=== PATIENT | female | born 1980 ===

== ENCOUNTER 2018-05-05 19:01 | Emergency (ER) | payer OTHER ==
[2018-05-05 19:01] VITALS: BMI 37.2
--- NOTE | 2018-05-05 20:17 | C.PDOC ---
History Of Present Illness 37 year old female presents to the ED complaining of lower back pain status post slipping and falling on her lower back while going down one step. States she felt some discomfort but started taking Motrin which helped ease the pain. Also complains of lower suprapubic pain that began 3 days ago. Reports Motrin only helps a little and the pain is constant and worse with movement. Denies any LOC, headache, dizziness, urinary symptoms, fever, chills, vaginal bleeding, bowel or bladder changes, changes in PO intake, or any other symptoms. Time Seen by Provider: 05/05/18 19:45 Chief Complaint (Nursing): Abdominal Pain History Per: Patient History/Exam Limitations: no limitations Onset/Duration Of Symptoms: Days Current Symptoms Are (Timing): Still Present Location Of Pain/Discomfort: Suprapubic Associated Symptoms: Back Pain. denies: Fever, Chills, Nausea, Vomiting, Diarrhea, Chest Pain, Urinary Symptoms Exacerbating Factors: Movement Alleviating Factors: OTC Meds Past Medical History Reviewed: Historical Data, Nursing Documentation, Vital Signs Vital Signs: Last Vital Signs Temp 98.8 F 05/05/18 19:34 Pulse 90 05/05/18 19:34 Resp 20 05/05/18 19:34 BP 129/85 05/05/18 19:34 Pulse Ox 99 05/05/18 19:34 Surgical History: No Surg Hx Family History: States: No Known Family Hx - Social History Hx Alcohol Use: No Hx Substance Use: No Review Of Systems Constitutional: Negative for: Fever, Chills Cardiovascular: Negative for: Chest Pain Respiratory: Negative for: Shortness of Breath Gastrointestinal: Positive for: Abdominal Pain. Negative for: Nausea, Vomiting, Diarrhea Genitourinary: Negative for: Dysuria, Hematuria, Vaginal Discharge, Vaginal Bleeding Musculoskeletal: Positive for: Back Pain. Negative for: Neck Pain Neurological: Negative for: Weakness, Numbness, Headache, Dizziness Physical Exam - Physical Exam Appears: Non-toxic, No Acute Distress Skin: Warm, Dry Head: Normacephalic Eye(s): bilateral: PERRL, EOMI Nose: Normal Oral Mucosa: Moist Neck: Normal ROM, Trachea Midline, Supple Chest: Symmetrical Cardiovascular: Rhythm Regular Respiratory: Normal Breath Sounds, No Rales, No Rhonchi, No Wheezing Gastrointestinal/Abdominal: Soft, Tenderness (Suprapubic midline tenderness) Back: No Decreased ROM, Other (Tenderness over mid sacrum, no bruising ) Extremity: Bilateral: No Pedal Edema, Normal Color And Temperature, Normal ROM Neurological/Psych: Oriented x3, Normal Speech, Normal Motor, Normal Sensation Gait: Steady ED Course And Treatment - Laboratory Results Result Diagrams: 05/05/18 20:36 05/05/18 20:36 Lab Interpretation: Normal O2 Sat by Pulse Oximetry: 99 (RA) Pulse Ox Interpretation: Normal - CT Scan/US CT abd/pelvis Other Rad Studies (CT/US): Read By Radiologist, Radiology Report Reviewed CT/US Interpretation: EXAM: CT Abdomen and Pelvis without IV contrast. CLI NICAL HISTORY: Abd pain after fall last week. TECHNIQUE: Axial computed tomography images of the abdomen and pelvis without intravenous contrast. 0.00 mGy-cm. CONTRAST: Without. COMPARISON: None provided. FINDINGS: LUNG BASES: The lung bases appear clear. No pleural effusions are seen. LIVER: Unremarkable. GALLBLADDER AND BILE DUCTS: 3 x 2 cm calcified gallstone is seen within a contracted gallbladder. PANCREAS: Unremarkable. SPLEEN: Unremarkable. ADRENAL GLANDS: Unremarkable. KIDNEYS, URETERS, AND BLADDER: The kidneys appear within normal limits. There is no hydronephrosis or hydroureter. No urinary calculi are seen. STOMACH AND BOWEL: Unremarkable appearance of the stomach and bowel. No evidence of bowel obstruction. No evidence suggesting enteritis or colitis. APPENDIX: No evidence of acute appendicitis on CT examination. PERITONEUM: No free fluid. No free air. LYMPH NODES: No lymphadenopathy is evident. REPRODUCTIVE: IUD is in place. Uterus and ovaries are unremarkable. VASCULATURE: No evidence of abdominal aortic aneurysm. BONES: No aggressive appearing osseous lesion. No acute osseous pathology evident. IMPRESSION: 1. 3 x 2 cm calcified gallstone is seen within a contracted gallbladder. Please correlate with right upper quadrant ultra sound. 2. IUD is in place. . Electronically signed on May 05, 2018 9:24:52 PM EDT by: Eber Friedman M.D., CAITLYN Certified By ABR & CBCCT. Fellowship Trained MRI and CT Specialist Reevaluation Time: 21:33 Reassessment Condition: Unchanged Medical Decision Making Medical Decision Making: Plan - CT abd/pel - Bloodwork - UA - HCG Disposition Counseled Patient/Family Regarding: Studies Performed, Diagnosis, Need For Followup, Rx Given - Disposition Referrals: [facility] [Outside] Disposition: HOME/ ROUTINE Disposition Time: 21:36 Condition: STABLE Prescriptions: Naproxen [Naprosyn] 1 tab PO BID PRN #25 tab PRN Reason: Pain Instructions: Contusion (DC), Coccyx Injury, Acute Abdomen (Belly Pain) Forms: [employer] (Guyanese) Print Language: BOTSWANAN - Clinical Impression Clinical Impression: Pelvic contusion, Abdominal pain - Scribe Statement The provider has reviewed the documentation as recorded by the Malikaibamy Rothman All medical record entries made by the Malikaibamy were at my direction and personally dictated by me. I have reviewed the chart and agree that the record accurately reflects my personal performance of the history, physical exam, medical decision making, and the department course for this patient. I have also personally directed, reviewed, and agree with the discharge instructions and disposition.
[2018-05-05 20:41] LABS: BASO # 0.1 K/uL (0.0-0.2); BASO % 0.8 % (0.0-2.0); EOS # 0.2 K/uL (0.0-0.7); EOS % 2.5 % (0.0-4.0); HEMOGLOBIN 14.4 g/dL (11.0-16.0); LYMPH # 3.3 K/uL (1.0-4.3); LYMPH % 34.1 % (20.0-40.0); MEAN CELL VOLUME 87.3 fL (81.0-99.0); MEAN CORPUSCULAR HEMOGLOBIN 29.2 pg (27.0-31.0); MEAN CORPUSCULAR HGB CONC 33.5 g/dL (33.0-37.0); MEAN PLATELET VOLUME 8.4 fL (7.2-11.7); MONO # 0.8 K/uL (0.0-0.8); MONO % 7.9 % (0.0-10.0); NEUT # 5.3 K/uL (1.8-7.0); NEUT % 54.7 % (50.0-75.0); RBC 4.94 Mil/uL (3.80-5.20); RED CELL DISTRIBUTION WIDTH 13.9 % (11.5-14.5); WHITE BLOOD COUNT 9.6 K/uL (4.8-10.8)
[2018-05-05 20:54] LABS: SQUAMOUS EPITHIAL 4 /hpf (0-5); URINE BACTERIA RARE (<OCC); URINE BILIRUBIN NEGATIVE (NEGATIVE); URINE BLOOD NEGATIVE (NEGATIVE); URINE CLARITY Clear (Clear); URINE COLOR Straw (YELLOW); URINE GLUCOSE (UA) NORMAL (Normal); URINE LEUKOCYTE ESTERASE 1+ Leu/uL (Negative); URINE PROTEIN NEGATIVE (NEGATIVE); URINE UROBILINOGEN NORMAL mg/dL (0.2-1.0)
[2018-05-05 20:59] LABS: ALB/GLOB RATIO 1.3 (1.0-2.1); ALBUMIN 4.4 g/dL (3.5-5.0); ALT/SGPT 21 U/L (9-52); AST/SGOT 31 U/L (14-36); BLOOD UREA NITROGEN 12 mg/dL (7-17); CALCIUM 9.4 mg/dl (8.6-10.4); GFR NON-AFRICAN AMERICAN > 60; LIPASE 63 U/L (23-300)
[2018-05-05 21:08] LABS: HCG,QUALITATIVE URINE NEGATIVE (NEGATIVE)
[2018-05-05 21:48] VITALS: BP 130/72; PULSE 78; RESP 18; TEMP 98.2; O2SAT 98
--- NOTE | 2018-05-06 09:25 | CT ---
Date of service: 05/05/2018 PROCEDURE: CT Abdomen and Pelvis without intravenous contrast HISTORY: COMPARISON: None. TECHNIQUE: CT scan of the abdomen and pelvis was performed without administration of intravenous contrast. Oral contrast was not administered. Coronal and sagittal reformatted images were obtained. Radiation dose: Total exam DLP = 1184.53 mGy-cm. This CT exam was performed using one or more of the following dose reduction techniques: Automated exposure control, adjustment of the mA and/or kV according to patient size, and/or use of iterative reconstruction technique. FINDINGS: LOWER THORAX: The visualized lungs are clear. LIVER: Normal in size. No gross lesion or ductal dilatation. 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 There are multiple filling defects within the calcified gallbladder and a 3 mm calcified stone in the cystic duct. The common bile duct is not dilated. PANCREAS: Normal in size. No gross lesion or ductal dilatation. SPLEEN: Normal in size. ADRENALS: Normal in size. No discrete nodule. KIDNEYS AND URETERS: Both kidneys are normal in size. No hydronephrosis or nephrolithiasis. VASCULATURE: Normal in caliber. No aortic aneurysm. No aortic atherosclerotic calcification or mural plaque present. BOWEL: Evaluation of the bowel is limited in the absence of oral contrast. The small bowel loops are normal in caliber. The colon is normal in size. No bowel dilatation or wall thickening. No bowel obstruction. APPENDIX: Normal appendix. PERITONEUM: No free fluid. No free air. LYMPH NODES: No enlarged lymph nodes. BLADDER: Well distended and normal in appearance. REPRODUCTIVE: The uterus is anteverted and normal in size. An IUD remains in satisfactory position. There is a 3.0 x 2.5 cm simple cyst in the right ovary. BONES: No acute fracture. Within normal limits for the patient's age. OTHER FINDINGS: None. IMPRESSION: 1. 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 3 mm calcified stone in the cystic duct. No CT evidence for choledocholithiasis. Please correlate with right upper quadrant ultrasound examination and clinical follow-up for porcelain gallbladder is advised. 2. 3.0 cm simple cyst in the right ovary. A preliminary report was provided by [employer]. The final report is tagged to the PA review folder.
== END 2018-05-05 21:48 | disposition home or self-care (01) ==
LOC: C.ER 19:01
DX: S30.0XXA Contusion of lower back and pelvis, initial encounter (principal); W10.9XXA Fall (on) (from) unspecified stairs and steps, initial encounter; R10.30 Lower abdominal pain, unspecified
CPT/HCPCS: 74176; 80053; 81001; 83690; 84703; 85025; 96374; 99284; J1885

== ENCOUNTER 2018-05-26 13:48 | Observation (INO) | payer OTHER ==
[2018-05-26 13:50] VITALS: BMI 36.4
[2018-05-26] MEDS ORDERED: Sodium Chloride 0.9% 1,000 ML IV ONE (14:09)
[2018-05-26] MEDS ORDERED: Sodium Chloride 0.9% 1,000 ML ONE (14:21)
--- NOTE | 2018-05-26 14:27 | C.PDOC ---
History Of Present Illness 37-year-old female was evaluated in this ED on 05/05 for complaints of lower abdominal and coccyx pain after sustaining a fall. Patient underwent a CT scan which showed gallstones, but her liver enzymes and white count were within nor mal limits. Patient did not have upper abdominal tenderness at the time and was discharged home. Following discharge, patient states she was asymptomatic for around one week. Since the past week, patient developed epigastric and right upper quadrant abdominal pain that radiates to her right shoulder and back, and worsens after eating greasy food. Over the past day, she has been experiencing chills and fever. Patient went to the clinic today and was referred to the ED for evaluation of cholecystitis. Patient denies nausea, vomiting, diarrhea, or urinary symptoms at this time. Time Seen by Provider: 05/26/18 13:59 Chief Complaint (Nursing): Abdominal Pain History Per: Patient History/Exam Limitations: no limitations Onset/Duration Of Symptoms: Hrs Current Symptoms Are (Timing): Still Present Location Of Pain/Discomfort: RUQ, Epigastric Radiation Of Pain To:: None Associated Symptoms: Fever, Chills. denies: Nausea, Vomiting, Diarrhea Additional History Per: Patient Past Medical History Reviewed: Historical Data, Nursing Documentation, Vital Signs Vital Signs: Last Vital Signs Temp 97.4 F L 05/26/18 13:52 Pulse 93 H 05/26/18 13:52 Resp 20 05/26/18 13:52 BP 133/89 05/26/18 13:52 Pulse Ox 100 05/26/18 13:52 - Medical History PMH: No Chronic Diseases Surgical History: No Surg Hx Family History: States: Unknown Family Hx - Social History Hx Alcohol Use: No Hx Substance Use: No Review Of Systems Constitutional: Positive for: Fever, Chills Gastrointestinal: Positive for: Abdominal Pain (epigastric and right upper quadrant ). Negative for: Nausea, Vomiting, Diarrhea Genitourinary: Negative for: Dysuria, Frequency, Hematuria Musculoskeletal: Positive for: Shoulder Pain (right), Back Pain Physical Exam - Physical Exam Appears: Non-toxic, No Acute Distress, Other (in mild distress ) Skin: Normal Color, Warm, Dry Head: Atraumatic, Normacephalic Eye(s): bilateral: Normal Inspection Oral Mucosa: Moist Neck: Supple Chest: Symmetrical, No Deformity, No Tenderness Cardiovascular: Rhythm Regular, No Murmur Respiratory: Normal Breath Sounds, No Rales, No Rhonchi, No Wheezing Gastrointestinal/Abdominal: Soft, Tenderness (epigastric, right upper quadrant and suprapubic ), No Guarding, No Rebound Extremity: Normal ROM, Capillary Refill (less than 2 seconds ) Neurological/Psych: Oriented x3, Normal Speech, Normal Cognition ED Course And Treatment - Laboratory Results Result Diagrams: 05/26/18 14:39 05/26/18 14:39 Lab Interpretation: No Acute Changes O2 Sat by Pulse Oximetry: 100 (on RA) Pulse Ox Interpretation: Normal - CT Scan/US Abdomen US Other Rad Studies (CT/US): Read By Radiologist, Radiology Report Reviewed CT/US Interpretation: Date of service: 05/26/2018. HISTORY: Abdominal pain. COMPARISON: None. TECHNIQUE: Grayscale imaging was performed. FINDINGS: LIVER: Measures 15.4 cm. There is diffuse increased echogenicity of the liver parenchyma. No mass. No intrahepatic bile duct dilatation. GALLBLADDER: The gallbladder is packed with gallstones. No pericholecystic fluid. No wall thickening. The sonographic Dixon's sign is negative. COMMON BILE DUCT: Measures 5.2 mm. No stones. No dilatation. PANCREAS: Unremarkable as visualized. No mass. No ductal dilatation. RIGHT KIDNEY: Measures 10.8cm. Normal echogenicity. No calculus, mass, or hydronephrosis. LEFT KIDNEY: Measures 10.7cm. Normal echogenicity. No calculus, mass, or hydronephrosis. SPLEEN: Normal in size and contour. No mass. AORTA: No aneurysmal dilatation. IVC: Unremarkable. OTHER FINDINGS: None. IMPRESSION: 1. Fatty liver. 2. Cholelithiasis. Progress Note: Bloodwork, urinalysis, US Abdomen ordered and reviewed. Morphine IVP and IV Fluids given. Reevaluation Time: 19:56 Reassessment Condition: Unchanged (Patient continues to complain of epigastric and RUQ pain.) - Physician Consult Information Outcome Of Conversation: Patient seen by surgery residents and case discussed with Dr Herring. she will be admitted to his service. Disposition - Disposition Disposition: HOSPITALIZED Disposition Time: 19:57 Condition: STABLE - POA Present On Arrival: None - Clinical Impression Clinical Impression: Cholelithiasis, Biliary colic - Scribe Statement The provider has reviewed the documentation as recorded by the Scribe (Mady Mckeon) Provider Attestation: All medical record entries made by the Scribe were at my direction and personally dictated by me. I have reviewed the chart and agree that the record accurately reflects my personal performance of the history, physical exam, medical decision making, and the department course for this patient. I have also personally directed, reviewed, and agree with the discharge instructions and disposition.
[2018-05-26 14:43] LABS: BASO # 0.1 K/uL (0.0-0.2); BASO % 0.8 % (0.0-2.0); EOS # 0.2 K/uL (0.0-0.7); EOS % 2.6 % (0.0-4.0); HEMOGLOBIN 13.7 g/dL (11.0-16.0); LYMPH # 2.4 K/uL (1.0-4.3); LYMPH % 29.2 % (20.0-40.0); MEAN CELL VOLUME 87.8 fL (81.0-99.0); MEAN CORPUSCULAR HEMOGLOBIN 29.9 pg (27.0-31.0); MEAN CORPUSCULAR HGB CONC 34.1 g/dL (33.0-37.0); MEAN PLATELET VOLUME 8.5 fL (7.2-11.7); MONO # 0.4 K/uL (0.0-0.8); MONO % 5.4 % (0.0-10.0); RBC 4.59 Mil/uL (3.80-5.20); RED CELL DISTRIBUTION WIDTH 14.1 % (11.5-14.5); WHITE BLOOD COUNT 8.1 K/uL (4.8-10.8)
[2018-05-26 14:50] LABS: SQUAMOUS EPITHIAL 8 /hpf (0-5); URINE BACTERIA RARE (<OCC); URINE BILIRUBIN NEGATIVE (NEGATIVE); URINE BLOOD NEGATIVE (NEGATIVE); URINE CLARITY Hazy (Clear); URINE COLOR Yellow (YELLOW); URINE GLUCOSE (UA) NORMAL (Normal); URINE LEUKOCYTE ESTERASE NEG Leu/uL (Negative); URINE PROTEIN NEGATIVE (NEGATIVE); URINE UROBILINOGEN NORMAL mg/dL (0.2-1.0)
[2018-05-26 15:09] LABS: ALB/GLOB RATIO 1.4 (1.0-2.1); ALBUMIN 4.2 g/dL (3.5-5.0); ALT/SGPT 8 U/L (9-52); AST/SGOT 15 U/L (14-36); BLOOD UREA NITROGEN 13 mg/dL (7-17); CALCIUM 9.2 mg/dl (8.6-10.4); GFR NON-AFRICAN AMERICAN > 60; LIPASE 76 U/L (23-300)
--- NOTE | 2018-05-26 15:21 | US ---
Date of service: 05/26/2018 HISTORY: Abdominal pain COMPARISON: None. TECHNIQUE: Grayscale imaging was performed. FINDINGS: LIVER: Measures 15.4 cm. There is diffuse increased echogenicity of the liver parenchyma. No mass. No intrahepatic bile duct dilatation. GALLBLADDER: The gallbladder is packed with gallstones. No pericholecystic fluid. No wall thickening. The sonographic Dixon's sign is negative. COMMON BILE DUCT: Measures 5.2 mm. No stones. No dilatation. PANCREAS: Unremarkable as visualized. No mass. No ductal dilatation. RIGHT KIDNEY: Measures 10.8cm. Normal echogenicity. No calculus, mass, or hydronephrosis. LEFT KIDNEY: Measures 10.7cm. Normal echogenicity. No calculus, mass, or hydronephrosis. SPLEEN: Normal in size and contour. No mass. AORTA: No aneurysmal dilatation. IVC: Unremarkable. OTHER FINDINGS: None. IMPRESSION: 1. Fatty liver. 2. Cholelithiasis.
[2018-05-26] MEDS ORDERED: HYDROmorphone 0.5 mg/0.5 ml ISec IVP PRN (20:05)
--- NOTE | 2018-05-26 20:20 | CP.PCM.HP ---
<Dean Dumont - Last Filed: 05/26/18 20:15> History of Present Illness - History of Present Illness History of Present Illness: Surgery H&P- Dr. Castillo 37F w/ no significant pmhx presents to [facility] ED as a referral from clinic with mid-epigastric pain radiating to the back that has been intermittent for 2 weeks. pain is worse with food, and better with naproxen. Patient as had been seen multiple times. Associated nausea, non-bloody, non-bilious vomiting, occasional diarrhea. Denies fevers, chills, chest pain, shortness of breath PMH: Denies PSH: Left carpal tunnel release ALL: Seafood SocialHx: Denies tobacco, eoth, recreational drug use FH: non-contributory Present on Admission - Present on Admission Any Indicators Present on Admission: No Past Patient History - Past Social History Smoking Status: Never Smoked - PSYCHIATRIC Hx Substance Use: No - SURGICAL HISTORY Hx Surgeries: Yes Hx Orthopedic Surgery: Yes - ANESTHESIA Hx Anesthesia: No Meds Allergies/Adverse Reactions: Allergies Allergy/AdvReac Type Severity Reaction Status Date / Time shrimp Allergy Verified 05/05/18 19:34 Physical Exam - Constitutional Appears: Non-toxic, No Acute Distress - Head Exam Head Exam: ATRAUMATIC - Eye Exam Eye Exam: EOMI. absent: Scleral icterus - ENT Exam ENT Exam: Mucous Membranes Moist - Respiratory Exam Respiratory Exam: NORMAL BREATHING PATTERN. absent: Accessory Muscle Use, Respiratory Distress - Cardiovascular Exam Cardiovascular Exam: REGULAR RHYTHM. absent: Bradycardia, Tachycardia - GI/Abdominal Exam GI & Abdominal Exam: Soft, Tenderness (tenderness to palpation in mid- epigastrum). absent: Distended, Firm, Guarding, Hernia, Rebound, Rigid - Extremities Exam Extremities exam: Positive for: normal inspection - Neurological Exam Neurological exam: Alert, Oriented x3 - Psychiatric Exam Psychiatric exam: Normal Affect - Skin Skin Exam: Intact, Warm Results - Vital Signs Recent Vital Signs: Last Vital Signs Temp 98.7 F 05/26/18 19:38 Pulse 80 05/26/18 19:38 Resp 20 05/26/18 16:35 BP 107/72 05/26/18 19:38 Pulse Ox 100 05/26/18 19:58 - Labs Result Diagrams: 05/26/18 14:39 05/26/18 14:39 Labs: Laboratory Results - last 24 hr 05/26/18 05/26/18 05/26/18 14:39 14:39 14:39 WBC 8.1 RBC 4.59 Hgb 13.7 Hct 40.3 MCV 87.8 MCH 29.9 MCHC 34.1 RDW 14.1 Plt Count 243 MPV 8.5 Neut % (Auto) 62.0 Lymph % (Auto) 29.2 [place] % (Auto) 5.4 Eos % (Auto) 2.6 Baso % (Auto) 0.8 Neut # (Auto) 5.0 Lymph # (Auto) 2.4 [place] # (Auto) 0.4 Eos # (Auto) 0.2 Baso # (Auto) 0.1 Sodium 138 Potassium 4.3 Chloride 102 Carbon Dioxide 24 Anion Gap 15 BUN 13 Creatinine 0.7 Est GFR ( Amer) > 60 Est GFR (Non-Af Amer) > 60 Random Glucose 102 Calcium 9.2 Total Bilirubin 0.2 AST 15 ALT 8 L D Alkaline Phosphatase 55 Total Protein 7.2 Albumin 4.2 Globulin 3.0 Albumin/Globulin Ratio 1.4 Lipase 76 Urine Color Yellow Urine Clarity Hazy Urine pH 6.0 Ur Specific [place] 1.013 Urine Protein Negative Urine Glucose (UA) Normal Urine Ketones Negative Urine Blood Negative Urine Nitrate Negative Urine Bilirubin Negative Urine Urobilinogen Normal Ur Leukocyte Esterase Neg Urine WBC (Auto) < 1 Urine RBC (Auto) 1 Ur Squamous Epith Cells 8 H Urine Bacteria Rare Assessment & Plan - Assessment and Plan (Free Text) Assessment: 37F w/ severe biliary colic w/ US findings of 2x2cm stone and multiple small stones Plan: - anti-emetic and analgesia PRN - NPO after MN - IvAbx - Plan for OR tomorrow - Discussed w/ Dr. Castillo Surgical attending PGY2 <Frederick Acuna - Last Filed: 05/27/18 08:18> Results - Vital Signs Recent Vital Signs: Last Vital Signs Temp 98.2 F 05/27/18 07:39 Pulse 90 05/27/18 07:39 Resp 20 05/27/18 07:39 BP 125/89 05/27/18 07:39 Pulse Ox 99 05/27/18 07:39 - Labs Result Diagrams: 05/27/18 07:30 05/26/18 14:39 Labs: Laboratory Results - last 24 hr 05/26/18 05/26/18 05/26/18 14:39 14:39 14:39 WBC 8.1 RBC 4.59 Hgb 13.7 Hct 40.3 MCV 87.8 MCH 29.9 MCHC 34.1 RDW 14.1 Plt Count 243 MPV 8.5 Neut % (Auto) 62.0 Lymph % (Auto) 29.2 [place] % (Auto) 5.4 Eos % (Auto) 2.6 Baso % (Auto) 0.8 Neut # (Auto) 5.0 Lymph # (Auto) 2.4 [place] # (Auto) 0.4 Eos # (Auto) 0.2 Baso # (Auto) 0.1 PT INR APTT Sodium 138 Potassium 4.3 Chloride 102 Carbon Dioxide 24 Anion Gap 15 BUN 13 Creatinine 0.7 Est GFR ( Amer) > 60 Est GFR (Non-Af Amer) > 60 Random Glucose 102 Calcium 9.2 Total Bilirubin 0.2 AST 15 ALT 8 L D Alkaline Phosphatase 55 Total Protein 7.2 Albumin 4.2 Globulin 3.0 Albumin/Globulin Ratio 1.4 Lipase 76 Urine Color Yellow Urine Clarity Hazy Urine pH 6.0 Ur Specific [place] 1.013 Urine Protein Negative Urine Glucose (UA) Normal Urine Ketones Negative Urine Blood Negative Urine Nitrate Negative Urine Bilirubin Negative Urine Urobilinogen Normal Ur Leukocyte Esterase Neg Urine WBC (Auto) < 1 Urine RBC (Auto) 1 Ur Squamous Epith Cells 8 H Urine Bacteria Rare Urine HCG, Qual 05/27/18 05/27/18 05/27/18 05:37 07:30 07:30 WBC 7.6 RBC 4.57 Hgb 13.9 Hct 40.1 MCV 87.8 MCH 30.5 MCHC 34.8 RDW 14.0 Plt Count 258 MPV 8.4 Neut % (Auto) 55.3 Lymph % (Auto) 33.9 [place] % (Auto) 6.9 Eos % (Auto) 3.2 Baso % (Auto) 0.7 Neut # (Auto) 4.2 Lymph # (Auto) 2.6 [place] # (Auto) 0.5 Eos # (Auto) 0.2 Baso # (Auto) 0.1 PT 11.7 INR 1.1 APTT 32 Sodium Potassium Chloride Carbon Dioxide Anion Gap BUN Creatinine Est GFR ( Amer) Est GFR (Non-Af Amer) Random Glucose Calcium Total Bilirubin AST ALT Alkaline Phosphatase Total Protein Albumin Globulin Albumin/Globulin Ratio Lipase Urine Color Urine Clarity Urine pH Ur Specific [place] Urine Protein Urine Glucose (UA) Urine Ketones Urine Blood Urine Nitrate Urine Bilirubin Urine Urobilinogen Ur Leukocyte Esterase Urine WBC (Auto) Urine RBC (Auto) Ur Squamous Epith Cells Urine Bacteria Urine HCG, Qual Negative Assessment & Plan - Assessment and Plan (Free Text) Plan: All medical record entries made by the resident were at my direction. I have reviewed the chart and agree that the record accurately reflects my personal performance of the history, physical exam, and medical decision making.
[2018-05-26] MEDS: cefOXitin IV 2 gm in Dextrose 2 GM/50 ML BAG IVPB SCH (22:19)
[2018-05-26] MEDS: Lactated Ringer's 1,000 ML IV SCH (23:27)
[2018-05-27] MEDS: cefOXitin IV 2 gm in Dextrose 2 GM/50 ML BAG IVPB SCH ×2 (05:00→14:41)
[2018-05-27] MEDS: Lactated Ringer's 1,000 ML IV SCH ×2 (07:00→14:24)
[2018-05-27 07:45] LABS: BASO # 0.1 K/uL (0.0-0.2); BASO % 0.7 % (0.0-2.0); EOS # 0.2 K/uL (0.0-0.7); EOS % 3.2 % (0.0-4.0); HEMOGLOBIN 13.9 g/dL (11.0-16.0); LYMPH # 2.6 K/uL (1.0-4.3); LYMPH % 33.9 % (20.0-40.0); MEAN CELL VOLUME 87.8 fL (81.0-99.0); MEAN CORPUSCULAR HEMOGLOBIN 30.5 pg (27.0-31.0); MEAN CORPUSCULAR HGB CONC 34.8 g/dL (33.0-37.0); MEAN PLATELET VOLUME 8.4 fL (7.2-11.7); MONO # 0.5 K/uL (0.0-0.8); MONO % 6.9 % (0.0-10.0); NEUT # 4.2 K/uL (1.8-7.0); NEUT % 55.3 % (50.0-75.0); RBC 4.57 Mil/uL (3.80-5.20); WHITE BLOOD COUNT 7.6 K/uL (4.8-10.8)
[2018-05-27 08:05] LABS: INR 1.1; PROTHROMBIN TIME 11.7 SECONDS (9.7-12.2)
[2018-05-27] MEDS ORDERED: Lidocaine/Epinephrine 1% 1:100000 10 ML IJ ONE (10:03)
[2018-05-27] MEDS ORDERED: Succinylcholine Chloride 20 mg/ml Syr (5 ml) IV ONE (10:08)
[2018-05-27] MEDS ORDERED: Rocuronium 10 mg/ml (5 ml) ONE (10:08)
[2018-05-27] MEDS ORDERED: Midazolam 2 MG/2 ML VIAL ONE (10:09)
[2018-05-27] MEDS ORDERED: Propofol 10 mg/ml Inj (20 ML) ONE (10:10)
--- NOTE | 2018-05-27 10:10 | RAD ---
HISTORY: Pre-Op COMPARISON: Chest x-ray performed 11/27/16 TECHNIQUE: Chest, one view. FINDINGS: LUNGS: No focal consolidation. Please note that chest x-ray has limited sensitivity for the detection of pulmonary masses. PLEURA: No significant pleural effusion identified. No definite pneumothorax . CARDIOVASCULAR: The cardiomediastinal silhouette appears within normal limits of size. No significant atherosclerotic calcification present. OSSEOUS STRUCTURES: No acute osseous abnormality identified. VISUALIZED UPPER ABDOMEN: Unremarkable. OTHER FINDINGS: None. IMPRESSION: No focal consolidation.
[2018-05-27] MEDS ORDERED: Phenylephrine 10 mg/ml Inj ONE (10:26)
[2018-05-27 10:43] LABS: ALB/GLOB RATIO 1.4 (1.0-2.1); ALBUMIN 4.1 g/dL (3.5-5.0); ALT/SGPT 15 U/L (9-52); AST/SGOT 37 U/L (14-36); BLOOD UREA NITROGEN 10 mg/dL (7-17); CALCIUM 9.2 mg/dl (8.6-10.4); GFR NON-AFRICAN AMERICAN > 60
--- NOTE | 2018-05-27 11:56 | PCM.SURG1 ---
Surgeon's Initial Post Op Note - Surgeon's Notes Surgeon: Dr. Castillo [place] Aide: Dr. Mcguire PGY4 Type of Anesthesia: General Endo, Local Pre-Operative Diagnosis: biliary colic Operative Findings: gallstones Post-Operative Diagnosis: biliary colic Operation Performed: laparoscopic cholecystectomy Specimen/Specimens Removed: gallbladder Estimated Blood Loss: EBL {In ML}: 2 Blood Products Given: N/A Drains Used: No Drains Post-Op Condition: Good Date of Surgery/Procedure: 05/27/18 Time of Surgery/Procedure: 11:56
[2018-05-27] MEDS ORDERED: Oxycodone/Acetaminophen 5/325 mg Tab PO PRN (11:57)
[2018-05-27] MEDS ORDERED: HYDROmorphone 0.5 mg/0.5 ml ISec IVP PRN (12:11)
[2018-05-27 16:07] VITALS: BP 129/92; PULSE 90; RESP 20; TEMP 98.7; O2SAT 97
--- NOTE | 2018-05-27 17:55 | CP.PCM.DIS ---
<DayanaBroderick - Last Filed: 05/28/18 08:42> Provider - Provider Date of Admission: 05/26/18 19:55 Attending physician: Frederick Acuna MD Time Spent in preparation of Discharge (in minutes): 45 Diagnosis - Discharge Diagnosis (1) Abdominal pain Status: Acute (2) Biliary colic Status: Acute (3) Cholelithiasis Status: Acute Hospital Course - Lab Results Lab Results: Most Recent Lab Values WBC 7.6 K/uL (4.8-10.8) 05/27/18 07:30 RBC 4.57 Mil/uL (3.80-5.20) 05/27/18 07:30 Hgb 13.9 g/dL (11.0-16.0) 05/27/18 07:30 Hct 40.1 % (34.0-47.0) 05/27/18 07:30 MCV 87.8 fL (81.0-99.0) 05/27/18 07:30 MCH 30.5 pg (27.0-31.0) 05/27/18 07:30 MCHC 34.8 g/dL (33.0-37.0) 05/27/18 07:30 RDW 14.0 % (11.5-14.5) 05/27/18 07:30 Plt Count 258 K/uL (130-400) 05/27/18 07:30 MPV 8.4 fL (7.2-11.7) 05/27/18 07:30 Neut % (Auto) 55.3 % (50.0-75.0) 05/27/18 07:30 Lymph % (Auto) 33.9 % (20.0-40.0) 05/27/18 07:30 [place] % (Auto) 6.9 % (0.0-10.0) 05/27/18 07:30 Eos % (Auto) 3.2 % (0.0-4.0) 05/27/18 07:30 Baso % (Auto) 0.7 % (0.0-2.0) 05/27/18 07:30 Neut # (Auto) 4.2 K/uL (1.8-7.0) 05/27/18 07:30 Lymph # (Auto) 2.6 K/uL (1.0-4.3) 05/27/18 07:30 [place] # (Auto) 0.5 K/uL (0.0-0.8) 05/27/18 07:30 Eos # (Auto) 0.2 K/uL (0.0-0.7) 05/27/18 07:30 Baso # (Auto) 0.1 K/uL (0.0-0.2) 05/27/18 07:30 PT 11.7 SECONDS (9.7-12.2) 05/27/18 07:30 INR 1.1 05/27/18 07:30 APTT 32 SECONDS (21-34) 05/27/18 07:30 Sodium 136 mmol/L (132-148) 05/27/18 07:30 Potassium 4.3 mmol/L (3.6-5.2) 05/27/18 07:30 Chloride 105 mmol/L (98-107) 05/27/18 07:30 Carbon Dioxide 23 mmol/L (22-30) 05/27/18 07:30 Anion Gap 12 (10-20) 05/27/18 07:30 BUN 10 mg/dL (7-17) 05/27/18 07:30 Creatinine 0.7 mg/dL (0.7-1.2) 05/27/18 07:30 Est GFR ( Amer) > 60 05/27/18 07:30 Est GFR (Non-Af Amer) > 60 05/27/18 07:30 Random Glucose 92 mg/dL (65-105) 05/27/18 07:30 Calcium 9.2 mg/dl (8.6-10.4) 05/27/18 07:30 Total Bilirubin 0.8 mg/dL (0.2-1.3) 05/27/18 07:30 AST 37 U/L (14-36) H D 05/27/18 07:30 ALT 15 U/L (9-52) 05/27/18 07:30 Alkaline Phosphatase 55 U/L (38-126) 05/27/18 07:30 Total Protein 7.0 g/dL (6.3-8.3) 05/27/18 07:30 Albumin 4.1 g/dL (3.5-5.0) 05/27/18 07:30 Globulin 2.9 gm/dL (2.2-3.9) 05/27/18 07:30 Albumin/Globulin Ratio 1.4 (1.0-2.1) 05/27/18 07:30 Lipase 76 U/L (23-300) 05/26/18 14:39 Urine Color Yellow (YELLOW) 05/26/18 14:39 Urine Clarity Hazy (Clear) 05/26/18 14:39 Urine pH 6.0 (5.0-8.0) 05/26/18 14:39 Ur Specific [place] 1.013 (1.003-1.030) 05/26/18 14:39 Urine Protein Negative mg/dL (NEGATIVE) 05/26/18 14:39 Urine Glucose (UA) Normal mg/dL (Normal) 05/26/18 14:39 Urine Ketones Negative mg/dL (NEGATIVE) 05/26/18 14:39 Urine Blood Negative (NEGATIVE) 05/26/18 14:39 Urine Nitrate Negative (NEGATIVE) 05/26/18 14:39 Urine Bilirubin Negative (NEGATIVE) 05/26/18 14:39 Urine Urobilinogen Normal mg/dL (0.2-1.0) 05/26/18 14:39 Ur Leukocyte Esterase Neg Della/uL (Negative) 05/26/18 14:39 Urine WBC (Auto) < 1 /hpf (0-5) 05/26/18 14:39 Urine RBC (Auto) 1 /hpf (0-3) 05/26/18 14:39 Ur Squamous Epith Cells 8 /hpf (0-5) H 05/26/18 14:39 Urine Bacteria Rare (<OCC) 05/26/18 14:39 Urine HCG, Qual Negative (NEGATIVE) 05/27/18 05:37 Blood Type O POSITIVE 05/27/18 07:30 Antibody Screen Negative 05/27/18 07:30 - Hospital Course Hospital Course: 37F w/ no significant pmhx presents to [facility] ED as a referral from clinic with mid-epigastric pain radiating to the back that has been intermittent for 2 weeks. pain is worse with food, and better with naproxen. Patient as had been seen multiple times. Associated nausea, non-bloody, non-bilious vomiting, occasional diarrhea. Denies fevers, chills, chest pain, shortness of breath. Patient was admitted for recurrent and severe biliary colic. She was made NPO past MN and started on IV abx. The next morning, patient went to OR for Lap cholecystectomy. Patient tolerated the procedure well with no apparent complications. Later in the day, patient was feeling fine. She was eating/drinking, OOB, ambulating and passing flatus. At this time, patient was deemed medically stable for discharge by Dr. Castillo. Patient to follow up within 1-2 weeks as outpatient. Tylenol #3 was given for pain. (This is a summary of the hospital course. Please refer to EMR for more details.) - Date & Time of H&P Date of H&P: 05/26/18 Time of H&P: 20:15 Discharge Exam - Head Exam Head Exam: ATRAUMATIC, NORMOCEPHALIC - Eye Exam Eye Exam: EOMI, Normal appearance Pupil Exam: PERRL - ENT Exam ENT Exam: Mucous Membranes Moist - Respiratory Exam Respiratory Exam: NORMAL BREATHING PATTERN - Cardiovascular Exam Cardiovascular Exam: REGULAR RHYTHM - GI/Abdominal Exam GI & Abdominal Exam: Normal Bowel Sounds, Soft, Tenderness (surgical sites). absent: Distended, Firm, Guarding, Rebound, Rigid - Extremities Exam Extremities exam: normal capillary refill, pedal pulses present - Back Exam Back exam: absent: CVA tenderness (L), CVA tenderness (R) - Neurological Exam Neurological exam: Alert, CN II-XII Intact, Oriented x3 - Psychiatric Exam Psychiatric exam: Normal Affect, Normal Mood - Skin Skin Exam: Dry, Intact, Warm Discharge Plan - Discharge Medications Prescriptions: Acetaminophen with Codeine [Tylenol with Codeine #3 Tablet] 1 each PO Q6H PRN #20 tablet PRN Reason: Pain, Moderate (4-7) - Follow Up Plan Condition: STABLE Disposition: HOME/ ROUTINE Instructions: Cholecystectomy (DC), Gallstones (DC) Additional Instructions: take tylenol #3 as prescribed f/u in [address] Kennedy office no heavy lifitng for [address] Kennedy office for any issues Referrals: Frederick Acuna MD [Staff Provider] - <Frederick Acuna - Last Filed: 05/29/18 14:15> Provider - Provider Date of Admission: 05/26/18 19:55 Attending physician: Frederick Acuna MD Hospital Course - Lab Results Lab Results: Most Recent Lab Values WBC 7.6 K/uL (4.8-10.8) 05/27/18 07:30 RBC 4.57 Mil/uL (3.80-5.20) 05/27/18 07:30 Hgb 13.9 g/dL (11.0-16.0) 05/27/18 07:30 Hct 40.1 % (34.0-47.0) 05/27/18 07:30 MCV 87.8 fL (81.0-99.0) 05/27/18 07:30 MCH 30.5 pg (27.0-31.0) 05/27/18 07:30 MCHC 34.8 g/dL (33.0-37.0) 05/27/18 07:30 RDW 14.0 % (11.5-14.5) 05/27/18 07:30 Plt Count 258 K/uL (130-400) 05/27/18 07:30 MPV 8.4 fL (7.2-11.7) 05/27/18 07:30 Neut % (Auto) 55.3 % (50.0-75.0) 05/27/18 07:30 Lymph % (Auto) 33.9 % (20.0-40.0) 05/27/18 07:30 [place] % (Auto) 6.9 % (0.0-10.0) 05/27/18 07:30 Eos % (Auto) 3.2 % (0.0-4.0) 05/27/18 07:30 Baso % (Auto) 0.7 % (0.0-2.0) 05/27/18 07:30 Neut # (Auto) 4.2 K/uL (1.8-7.0) 05/27/18 07:30 Lymph # (Auto) 2.6 K/uL (1.0-4.3) 05/27/18 07:30 [place] # (Auto) 0.5 K/uL (0.0-0.8) 05/27/18 07:30 Eos # (Auto) 0.2 K/uL (0.0-0.7) 05/27/18 07:30 Baso # (Auto) 0.1 K/uL (0.0-0.2) 05/27/18 07:30 PT 11.7 SECONDS (9.7-12.2) 05/27/18 07:30 INR 1.1 05/27/18 07:30 APTT 32 SECONDS (21-34) 05/27/18 07:30 Sodium 136 mmol/L (132-148) 05/27/18 07:30 Potassium 4.3 mmol/L (3.6-5.2) 05/27/18 07:30 Chloride 105 mmol/L (98-107) 05/27/18 07:30 Carbon Dioxide 23 mmol/L (22-30) 05/27/18 07:30 Anion Gap 12 (10-20) 05/27/18 07:30 BUN 10 mg/dL (7-17) 05/27/18 07:30 Creatinine 0.7 mg/dL (0.7-1.2) 05/27/18 07:30 Est GFR ( Amer) > 60 05/27/18 07:30 Est GFR (Non-Af Amer) > 60 05/27/18 07:30 Random Glucose 92 mg/dL (65-105) 05/27/18 07:30 Calcium 9.2 mg/dl (8.6-10.4) 05/27/18 07:30 Total Bilirubin 0.8 mg/dL (0.2-1.3) 05/27/18 07:30 AST 37 U/L (14-36) H D 05/27/18 07:30 ALT 15 U/L (9-52) 05/27/18 07:30 Alkaline Phosphatase 55 U/L (38-126) 05/27/18 07:30 Total Protein 7.0 g/dL (6.3-8.3) 05/27/18 07:30 Albumin 4.1 g/dL (3.5-5.0) 05/27/18 07:30 Globulin 2.9 gm/dL (2.2-3.9) 05/27/18 07:30 Albumin/Globulin Ratio 1.4 (1.0-2.1) 05/27/18 07:30 Lipase 76 U/L (23-300) 05/26/18 14:39 Urine Color Yellow (YELLOW) 05/26/18 14:39 Urine Clarity Hazy (Clear) 05/26/18 14:39 Urine pH 6.0 (5.0-8.0) 05/26/18 14:39 Ur Specific [place] 1.013 (1.003-1.030) 05/26/18 14:39 Urine Protein Negative mg/dL (NEGATIVE) 05/26/18 14:39 Urine Glucose (UA) Normal mg/dL (Normal) 05/26/18 14:39 Urine Ketones Negative mg/dL (NEGATIVE) 05/26/18 14:39 Urine Blood Negative (NEGATIVE) 05/26/18 14:39 Urine Nitrate Negative (NEGATIVE) 05/26/18 14:39 Urine Bilirubin Negative (NEGATIVE) 05/26/18 14:39 Urine Urobilinogen Normal mg/dL (0.2-1.0) 05/26/18 14:39 Ur Leukocyte Esterase Neg Della/uL (Negative) 05/26/18 14:39 Urine WBC (Auto) < 1 /hpf (0-5) 05/26/18 14:39 Urine RBC (Auto) 1 /hpf (0-3) 05/26/18 14:39 Ur Squamous Epith Cells 8 /hpf (0-5) H 05/26/18 14:39 Urine Bacteria Rare (<OCC) 05/26/18 14:39 Urine HCG, Qual Negative (NEGATIVE) 05/27/18 05:37 Blood Type O POSITIVE 05/27/18 07:30 Antibody Screen Negative 05/27/18 07:30
[2018-05-27] MEDS ORDERED: Pneumococcal 23-Valent Vaccine IM ONE (18:02)
--- NOTE | 2018-05-27 23:49 | CARD ---
APPROVED REPORT Date of service: 05/26/2018 EKG Measurement Heart [id number] <Conclusion> Normal sinus rhythm Normal ECG
--- NOTE | 2018-06-01 05:53 | OP ---
PROCEDURE DATE: 05/27/2018 PREOPERATIVE DIAGNOSES: Chronic cholecystitis and cholelithiasis. POSTOPERATIVE DIAGNOSES: Chronic cholecystitis and cholelithiasis. OPERATION PERFORMED: Laparoscopic cholecystectomy. SURGEON: Frederick Castillo MD KNITTER HAND: Jatinder Mcguire DO, PGY-4 ANESTHESIA: General anesthesia with local anesthetic. DESCRIPTION OF OPERATION: After informed consent was obtained, the patient was taken to the operating room and placed in a supine position. General endotracheal anesthesia was then induced, and the patient's abdomen was prepped and draped in the usual sterile fashion using chlorhexidine prep. A time-out was performed to identify correct patient and procedure. After the local anesthetic was infused to the infraumbilical site and using a 15-blade, a 5-mm incision was made. Using blunt dissection with a towel clamp, dissection was carried down to the fascia. Using a Veress needle and two towel clamps on either side of the incision, the intra-abdominal cavity was entered. Abdomen was then insufflated with carbon dioxide to a pressure of 15 mmHg. Opening pressure was 4 mmHg. The patient tolerated the insufflation well. Using NeuroTronikview, a 5-mm trocar was inserted into the umbilical port site and then under direct visualization, additional working ports were inserted, one 5-mm port to the right of the midline and a second 10-mm port to subxiphoid. A 30-degree laparoscope was then inserted, and the gallbladder was initially seen. The fundus of the gallbladder was then retracted over the liver in a cephalad and right shoulder direction. The omental adhesions were dissected using [place] dissection and minimal electrocautery. After the gallbladder was freed from the omentum, the infundibulum was then grasped with a grasper and retracted cephalad. Dissection started to occur along the cystic duct following peritoneal and omental attachments using Bovie electrocautery. Once the cystic duct was appropriately identified, three 5-mm clips were placed on the duct and using Endo Roxane, the duct was transected. Additional dissection was done, carried posteriorly, and the cystic artery was identified. The plan was to dissect it in a similar fashion, and three 5-mm clips were placed along the artery and then transected with Endo Roxane. Once those structures were taken, using a hook cautery dissection, the gallbladder was then taken from its peritoneal attachments from underneath the liver. Once the gallbladder was successfully removed from underneath the liver, the gallbladder was then placed into an EndoCatch bag which was done from the 10-mm port in the subxiphoid region. The gallbladder fossa was then inspected for good hemostasis which was noted any leakage of bile with blunt suction and irrigated underneath the gallbladder fossa and over the top of the liver. The remainder of the abdomen was then inspected to ensure no injury or trauma had been made during the procedure. The trocars were then removed under direct vision. The camera was removed from the abdominal cavity. The abdomen was then allowed to collapse. All skin incisions were closed with a 4-0 Monocryl running in a subcuticular fashion. Incisions were cleaned and dried along with application of Steri-Strips and dry sterile dressing. The patient was then extubated and transported into recovery room in good stable condition. All instrument, sponge, and needle counts were correct at the end of the case. COMPLICATIONS: None. SPECIMENS: Gallbladder. DRAINS: None. ESTIMATED BLOOD LOSS: 5 mL. Ana-Tonya Mcguire DO Frederick Castillo M.D.
== END 2018-05-27 19:14 | disposition home or self-care (01) ==
LOC: C.ER 13:48 → C.9E 19:55 → C.3T 21:03
PROVIDERS: ADMIT Surgery; ATTEND Surgery
DX: K80.10 Calculus of gallbladder with chronic cholecystitis without obstruction (principal); M53.3 Sacrococcygeal disorders, not elsewhere classified; W19.XXXA Unspecified fall, initial encounter; Z23 Encounter for immunization
CPT/HCPCS: 36415; 47562; 71045; 76700; 80053; 81001; 83690; 84703; 85025; 85610; 85730; 86850; 86900; 88304; 90471; 90732; 93005; 96361; 96374; 96375; 99285; G0378; J0694; J1170; J1885; J2001; J2250; J2270; J2370; J2405; J2704; J2765; J3010; J7030; J7120